=== PATIENT | male | born 1960 | race Caucasian/White ===

== ENCOUNTER 2024-03-30 12:13 | Emergency (ER) | payer OTHER ==
[2024-03-30] MEDS: Orphenadrine 60 MG/2 ML Inj IM ONE (13:16)
[2024-03-30] MEDS: Ketorolac 15 MG/ML SDV IM ONE (13:17)
== END 2024-03-30 15:02 | disposition home or self-care (01) ==
LOC: LB.ED 12:13
DX: S20.219A Contusion of unspecified front wall of thorax, initial encounter (principal); E78.00 Pure hypercholesterolemia, unspecified; F17.210 Nicotine dependence, cigarettes, uncomplicated; Z79.82 Long term (current) use of aspirin; Z79.899 Other long term (current) drug therapy; W00.0XXA Fall on same level due to ice and snow, initial encounter
CPT/HCPCS: 72072; 96372; 99283; J1885; J2360